=== PATIENT | female | born 1955 | race Caucasian/White ===

== ENCOUNTER → 2017-08-03 | Day surgery (SDC) | payer SELFPAY ==
[~2017-08-03] VITALS: Ht 167.6 cm; Wt 85.3 kg
[~2017-08-03] MED LIST: DICLOFENAC SODI75 M2 PO; ESCITALOPRAM OX20 MG PO; FLONASE ALLERG9.9 ML NASB; HYDROXYZINE HCL10 M2 PO; VITAMIN B-121000 MC3 PO
--- NOTE | 2017-08-03 18:20 | Operative Report ---
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 She is also requesting fat transfer to the face due to some descent and atrophy in the cheeks and lips nasal labial fold and marionette lines. Has deep right tubes of the glabellar region and is requesting both tear oh injection. We talked about the risks of all these and she appears to understand. Scars take a SPS informed consents. Patient has excess skin of the upper arms with some fullness posteriorly and laterally we discussed liposuction through a posterior stab incision as well as a traditional brachioplasty extending into the axilla. She was marked in the standing position sitting position as well as checking for symmetry with a tape measure. She signed informed consent. She was taken to the operating room placed supine on the table Venodyne boots are placed and general anesthesia was established intravenous antibiotics were given. The arms were prepped and draped in usual sterile fashion. The abdominal wall was also prepped and draped in usual sterile fashion. His placed through an umbilical stab incision proximal he 500 correction 300 mL. Approximately 3-4 mL of tumescent was placed in each posterior arm and liposuction was performed a similar amounts. The upper incision was deepened down to the fascia elevated off the fascia after liposuction identified and Plane. Checked for tension and the posterior incision was deepened. 2 layer closure was carried out. Similar procedure done on the opposite arm. 10 mL cannula was used to harvest approximate 15 mL of that it was a processed and dried and injected into the face through small stab incisions in a supraperiosteal plane of bilateral cheeks deep placement in the marionette region as well as in the nasolabial folds. Both tear was injected in the 3 deep right-sided subdural the glabella as well as in the upper and lower right wall of the lip.
== END ==
LOC: STS 01:47
DX: Z41.1 Encounter for cosmetic surgery (principal); E65 Localized adiposity; L90.8 Other atrophic disorders of skin; I10 Essential (primary) hypertension
CPT/HCPCS: J0171; J1200; J2001; J2250; J3490